=== PATIENT | male | born 1995 ===

== ENCOUNTER 2021-12-18 08:49 | Emergency (ER) | payer MEDICAID ==
[~2021-12-18] VITALS: Ht 172.7 cm; Wt 86.4 kg
[2021-12-18 10:15] LABS: BASOPHILS % (AUTO) 0.2 % (0.0-2.0); EOSINOPHILS % (AUTO) 0.5 % (1.0-6.0); HEMATOCRIT 47.7 % (41-53); HEMOGLOBIN 16.2 g/dL (13.5-17.5); LYMPHOCYTES # (AUTO) 2.6 K/uL (1.0-4.8); MEAN CORPUSCULAR HEMOGLOBIN 30.5 pg (26.0-34.0); MEAN CORPUSCULAR VOLUME 90 fL (80-100); MONOCYTES # (AUTO) 0.8 K/uL (0.1-1.0); MONOCYTES % (AUTO) 5.9 % (2.0-9.0); NEUTROPHILS # (AUTO) 10.3 K/uL (1.8-7.7); NEUTROPHILS % (AUTO) 74.4 % (40.0-70.0); PLATELET COUNT (AUTO) 247 K/uL (150-450); RED BLOOD CELL COUNT(AUTO) 5.32 MIL/uL (4.50-5.90); RED CELL DISTRIBUTION WIDTH 12.8 % (11.5-14.5)
[2021-12-18 10:25] LABS: ANION GAP 3 mmol/L (8-16); CALCIUM, TOTAL 8.8 mg/dL (8.8-10.5); CARBON DIOXIDE 29 mmol/L (22-29); CHLORIDE 102 mmol/L (98-107); CREATININE 1.21 mg/dL (0.60-1.30); GLUCOSE,RANDOM 77 mg/dL (70-110); POTASSIUM 4.1 mmol/L (3.5-5.1); SODIUM SERUM 134 mmol/L (136-145); UREA NITROGEN, BLOOD 10 mg/dL (7-18)
[2021-12-18 10:26] LABS: GLOMERULAR FILTR. RATE CALC > 60 mL/min (>60)
[2021-12-18 10:31] LABS: ALANINE AMINOTRANSFERASE 21 U/L (12-78); ALBUMIN 3.6 g/dL (3.4-5.0); ALKALINE PHOSPHATASE 129 U/L (46-116); ASPARTATE AMINOTRANSFERASE 16 U/L (15-37); BILIRUBIN,TOTAL 0.3 mg/dL (0.1-1.0); TOTAL PROTEIN, SERUM 7.2 g/dL (6.4-8.2)
[2021-12-18 10:45] LABS: LACTIC ACID 0.9 mmol/L (0.4-2.0)
[2021-12-18] MEDS ORDERED: SODIUM CHLORIDE 0.9% 2,000 ML IV ONE (12:00)
[2021-12-18] MEDS ORDERED: DiphenhydrAMINE HCL 50 MG/ML VIAL IVP ONE (12:00)
[2021-12-18] MEDS ORDERED: DiphenhydrAMINE HCL 50 MG/ML VIAL IM ONE (12:00)
[2021-12-18] MEDS ORDERED: PredniSONE 20 MG TABLET PO ONE (12:00)
[2021-12-18] MEDS ORDERED: DIPH50CA37 PO (14:06)
[2021-12-18 15:00] VITALS: BP 129/68
== END 2021-12-18 15:14 | disposition home or self-care (01) ==
LOC: EMS 08:55
DX: R55 Syncope and collapse (principal); Z91.013 Allergy to seafood; F17.210 Nicotine dependence, cigarettes, uncomplicated
CPT/HCPCS: 99285; 93306; 96374; 71045; 96361; 80053; 83605; 85025; 36415; 93005; J1200; J7512; J7030